=== PATIENT | female | born 1940 | race Caucasian/White ===

== ENCOUNTER 2017-06-16 11:16 | Outpatient (CLI) | payer MEDICARE ==
--- NOTE | 2017-06-16 13:17 | RAD ---
LEFT KNEE 4 VIEWS: HISTORY: Left knee pain. FINDINGS: There are mild-moderate degenerative changes. No fracture, dislocation, or bony destruction is iden tified. IMPRESSION: Left knee osteoarthritis. POS: CELESTINE
== END 2017-06-16 11:17 | disposition home or self-care (01) ==
LOC: MADRAD 11:16
PROVIDERS: ATTEND Obstetrics & Gynecology
DX: M25.562 Pain in left knee (principal); M17.12 Unilateral primary osteoarthritis, left knee

== ENCOUNTER 2021-06-29 06:39 | Emergency (ER) | payer MEDICARE | END 2021-06-29 07:50 | disposition home or self-care (01) | LOC: MADERS 06:39 | DX: L03.116 Cellulitis of left lower limb (principal); I10 Essential (primary) hypertension; Z79.899 Other long term (current) drug therapy | CPT/HCPCS: 99283 ==

== ENCOUNTER 2022-04-07 07:54 | Emergency (ER) | payer MEDICARE | END 2022-04-07 09:16 | disposition short-term general hospital (02) | LOC: MADERS 07:54 | DX: M25.472 Effusion, left ankle (principal); I10 Essential (primary) hypertension; Z79.899 Other long term (current) drug therapy | CPT/HCPCS: 99284 ==